=== PATIENT | male | born 1975 | race Caucasian/White ===

== ENCOUNTER 2017-11-28 17:31 | Emergency (ER) | payer SELFPAY ==
[2017-11-28] MEDS: ONDANSETRON ODT 4 MG TAB.RAPDIS. PO (19:14)
[2017-11-28] MEDS: LIDO:MAALOX:DONNATAL 1:1:1 15 ML SINGLE DOSE SWSW (19:14)
[2017-11-28] MEDS: FAMOTIDINE 20 MG TABLET. PO (19:14)
[2017-11-28 19:58] LABS: ADD MAN DIFF? NO
[2017-11-28 20:01] LABS: BASO # 0.1 x10^3/uL (0.0-0.2); BASO % 1 % (0-3); EOS # 0.3 x10^3/uL (0.0-0.7); EOS % 3 % (0-3); HEMATOCRIT 47.4 % (39.0-53.0); HEMOGLOBIN 16.3 g/dL (13.0-17.5); LYMPH # 3.7 x10^3/uL (1.0-4.8); LYMPH % 33 % (24-48); MEAN CORPUSCULAR HEMOGLOBIN 31 pg (25-35); MEAN CORPUSCULAR HGB CONC 35 g/dL (31-37); MEAN CORPUSCULAR VOLUME 90 fL (79-100); MONO # 0.9 x10^3/uL (0.0-1.1); MONO % 8 % (0-9); NEUT # 6.4 x10^3uL (1.8-7.7); NEUT % 56 % (31-73); PLATELET COUNT 280 x10^3/uL (140-400); RED BLOOD COUNT 5.27 x10^6/uL (4.30-5.70); RED CELL DISTRIBUTION WIDTH 13.6 % (11.5-14.5); WHITE BLOOD COUNT 11.4 x10^3/uL (4.0-11.0)
[2017-11-28 20:22] LABS: ANION GAP 9 (6-14); BLOOD UREA NITROGEN 11 mg/dL (8-26); BUN/CREATININE RATIO 12 (6-20); CALCIUM 9.1 mg/dL (8.5-10.1); CARBON DIOXIDE 29 mmol/L (21-32); CHLORIDE 102 mmol/L (98-107); CREATININE 0.9 mg/dL (0.7-1.3); GFR 92.5; GLUCOSE 103 mg/dL (70-99); POTASSIUM 4.5 mmol/L (3.5-5.1); SODIUM 140 mmol/L (136-145)
[2017-11-28 20:27] LABS: ALBUMIN 3.6 g/dL (3.4-5.0); ALK PHOS 110 U/L (46-116); ALT (SGPT) 35 U/L (16-63); AST (SGOT) 26 U/L (15-37); LIPASE 128 U/L (73-393); TOTAL BILIRUBIN 0.3 mg/dL (0.2-1.0); TOTAL PROTEIN 7.2 g/dL (6.4-8.2)
[2017-11-28 20:28] LABS: TROPONINI < 0.017 ng/mL (0.000-0.055)
[2017-11-28] MEDS: NITROGLYCERIN SUBLINGUAL 0.4 MG BOTTLE OF 25. SL (21:40)
== END 2017-11-28 22:17 | disposition home or self-care (01) ==
LOC: ER 17:31
DX: R10.13 Epigastric pain (principal); F17.200 Nicotine dependence, unspecified, uncomplicated; Z90.49 Acquired absence of other specified parts of digestive tract
CPT/HCPCS: 36415; 71045; 80053; 83690; 84484; 85025; 93005; 99285-25; Q0162

== ENCOUNTER 2018-05-08 11:44 | Emergency (ER) | payer SELFPAY ==
[~2018-05-08] VITALS: Ht 167.6 cm; Wt 63.5 kg
[~2018-05-08 11:44] MED LIST: METO10TA81 PO; OMEP20TA63 PO; RANI150T21 PO
[2018-05-08 13:39] LABS: BASO # 0.1 x10^3/uL (0.0-0.2); BASO % 1 % (0-3); EOS # 0.3 x10^3/uL (0.0-0.7); EOS % 2 % (0-3); HEMATOCRIT 45.5 % (39.0-53.0); LYMPH # 4.2 x10^3/uL (1.0-4.8); LYMPH % 37 % (24-48); MEAN CORPUSCULAR HEMOGLOBIN 32 pg (25-35); MEAN CORPUSCULAR HGB CONC 35 g/dL (31-37); MEAN CORPUSCULAR VOLUME 90 fL (79-100); MONO % 9 % (0-9); NEUT # 5.9 x10^3uL (1.8-7.7); NEUT % 51 % (31-73); PLATELET COUNT 270 x10^3/uL (140-400); RED BLOOD COUNT 5.05 x10^6/uL (4.30-5.70); RED CELL DISTRIBUTION WIDTH 13.2 % (11.5-14.5); WHITE BLOOD COUNT 11.4 x10^3/uL (4.0-11.0)
[2018-05-08] MEDS ORDERED: DEXAMETHASONE SOD PHOS 20 MG/5 ML VIAL. IV ONE (13:45)
[2018-05-08] MEDS ORDERED: IV NORMAL SALINE 1000ML BAG 1,000 ML IV ONE (13:45)
[2018-05-08 13:49] LABS: CALCIUM 9.3 mg/dL (8.5-10.1); CREATININE 1.1 mg/dL (0.7-1.3); GFR 73.4; POTASSIUM 3.2 mmol/L (3.5-5.1)
[2018-05-08 13:56] LABS: ALBUMIN 3.7 g/dL (3.4-5.0); MAGNESIUM 2.3 mg/dL (1.8-2.4); TOTAL BILIRUBIN 0.3 mg/dL (0.2-1.0); TOTAL PROTEIN 7.3 g/dL (6.4-8.2)
[2018-05-08 14:03] LABS: BILIRUBIN,URINE NEGATIVE (NEG); CLARITY,URINE CLEAR; COLOR,URINE YELLOW; NITRITE,URINE NEGATIVE (NEG); PH,URINE 5.5; PROTEIN,URINE NEGATIVE (NEG-TRACE); UROBILINOGEN,URINE 0.2 mg/dL (0.2 mg/dL)
[2018-05-08 14:14] LABS: BACTERIA,URINE 0 /HPF (0-FEW); RBC,URINE 0 /HPF (0-2); SQUAMOUS EPITHELIAL CELL,UR OCC /LPF; WBC,URINE 0 /HPF (0-4)
--- NOTE | 2018-05-08 14:17 | RAD ---
EXAM: Head CT without contrast. HISTORY: Headache and dizziness. TECHNIQUE: Computed tomographic images of the head were obtained without contrast. *One or more of the following individualized dose reduction techniques were utilized for this examination: 1. Automated exposure control. 2. Adjustment of the mA and/or kV according to patient size. 3. Use of iterative reconstruction technique. COMPARISON: None. FINDINGS: There is no acute or subacute extra-axial or intraparenchymal hemorrhage. There is no mass effect or midline shift. There is no hydrocephalus. The tatum-white matter differentiation pattern is intact. No orbital mass is seen. The visualized paranasal sinuses are clear. There is a small amount of fluid within the right mastoid air cells. IMPRESSION: No acute intracranial findings. Electronically signed by: Stephanie Mckinley MD (05/08/2018 2:14 PM) [facility]
--- NOTE | 2018-05-08 14:21 | PHYS DOC ---
Past Medical History Past Medical History: Other Additional Past Medical Histor: [place], HYPOGLYCEMIA Past Surgical History: Appendectomy, Tonsillectomy Alcohol Use: Occasionally Drug Use: None Adult General Chief Complaint Chief Complaint: DIZZY/LIGHT HEADED HPI HPI 42-year-old male presents to ER for complaints of one year history of intermittent headache, dizziness, and tendinitis. Patient reports he also has chronic diarrhea which is intermittent denying any episodes today. Patient's Aziza is at bedside and provides majority of history for the patient. She reports patient in the past month has had more intense symptoms. Patient reports he reports last night at [employer] and had intermittent dizziness denying any falls or injury. Patient reports when he got off work this morning when discussing symptoms with his they decided to come to the ER for evaluation. Patient has history of bilateral ruptured eardrums and is supposed to wear hearing aids however he doesn't. Patient is hard of hearing due to previous eardrum injuries. Education had ear tubes bilaterally as a child and has had chronic issues with his ear. Patient reports today having diffuse headache after getting off work denying any visual disturbances. Patient denies any confusion and at bedside denies patient having change in mental status or episodes of confusion. Patient reports he did take dose of ibuprofen at 6 AM this morning with slight improvement in pain however still rates pain at 8 out of 10. Patient denies any vomiting or diarrhea episodes today. Patient denies any chest pain or shortness of air. Patient reports he has had regular appetite and denies any urinary symptoms. He denies any neck pain or swollen lymph nodes. Review of Systems Review of Systems Constitutional: Denies fever or chills. Denies lethargy Eyes: Denies change in visual acuity, redness, or eye pain. Denies photosensitivity. HENT: Denies nasal congestion or sore throat. Reports multiple cavities with occasional abscess mid upper gum. Respiratory: Denies cough or shortness of breath [] Cardiovascular: Denies CP/palpitations GI: Denies abdominal pain or bloody stools. Reports intermittent N/V/D- no V/D today : Denies dysuria or hematuria. Denies change in urinary sxs Musculoskeletal: Denies back/neck pain. Reports generalized bodyaches Integument: Denies rash or skin lesions [] Neurologic: Denies focal weakness or sensory changes. Reports dizziness. Reports diffuse RIOS. All other systems were reviewed and found to be within normal limits, except as documented in this note. Current Medications Current Medications Current Medications Medications (Trade) Dose Ordered Sig/Dulce Maria Start Time Stop Time Status Last Admin Dose Admin Dexamethasone Sodium Phosphate (Decadron) 10 mg 1X ONCE 05/08/18 13:45 05/08/18 13:46 DC 05/08/18 14:09 10 MG Ketorolac Tromethamine (Toradol 15mg Vial) 15 mg 1X ONCE 05/08/18 15:15 05/08/18 15:16 DC 05/08/18 15:17 15 MG Sodium Chloride 1,000 ml @ 1,000 mls/hr 1X ONCE 05/08/18 13:45 05/08/18 14:44 DC 05/08/18 14:09 1,000 MLS/HR Allergies Allergies Allergies Coded Allergies Type Severity Reaction Last Updated Verified No Known Drug Allergies 11/28/17 No Physical Exam Physical Exam Constitutional: Well developed, well nourished, no acute distress, non-toxic appearance. Speaking in full sentences with no slurring HENT: Normocephalic, atraumatic, bilateral ears normal- no erythema/purulent drainage, oropharynx moist, no oral exudates, nose normal.Multiple cavities- with no visible or palp. abscess on mid upper gum. Bilat. mandible with no swelling/palp. popping with opening of jaw Eyes: 3mm PERRLA, EOMI- no pain with eye movement, no nystagmus, conjunctiva normal, no discharge. [] Neck: Normal range of motion, no tenderness, supple, no stridor. No gross adenopathy Cardiovascular:Heart rate regular rhythm, no murmur [] Lungs & Thorax: Bilateral breath sounds clear to auscultation. Resp. equal/ nonlabored Abdomen: Bowel sounds normal, soft, no tenderness, no masses, no pulsatile masses. [] Skin: Warm, dry, no erythema, no rash. [] Back: No tenderness, no CVA tenderness. [] Extremities: No tenderness, no cyanosis, no clubbing, ROM intact, no edema. [] Neurologic: Alert and oriented X 3, normal motor function, normal sensory function, no focal deficits noted. Steady gait Psychologic: Affect normal, judgement normal, mood normal. [] Current Patient Data Vital Signs Vital Signs Date Time Temp Pulse Resp B/P (MAP) Pulse Ox O2 Delivery O2 Flow Rate FiO2 05/08/18 15:30 50 91 05/08/18 12:25 98.6 16 114/64 (81) Room Air 98.6 Lab Values Laboratory Tests Test 05/08/18 12:15 05/08/18 13:54 White Blood Count 11.4 x10^3/uL (4.0-11.0) H Red Blood Count 5.05 x10^6/uL (4.30-5.70) Hemoglobin 16.0 g/dL (13.0-17.5) Hematocrit 45.5 % (39.0-53.0) Mean Corpuscular Volume 90 fL (79-100) Mean Corpuscular Hemoglobin 32 pg (25-35) Mean Corpuscular Hemoglobin Concent 35 g/dL (31-37) Red Cell Distribution Width 13.2 % (11.5-14.5) Platelet Count 270 x10^3/uL (140-400) Neutrophils (%) (Auto) 51 % (31-73) Lymphocytes (%) (Auto) 37 % (24-48) Monocytes (%) (Auto) 9 % (0-9) Eosinophils (%) (Auto) 2 % (0-3) Basophils (%) (Auto) 1 % (0-3) Neutrophils # (Auto) 5.9 x10^3uL (1.8-7.7) Lymphocytes # (Auto) 4.2 x10^3/uL (1.0-4.8) Monocytes # (Auto) 1.0 x10^3/uL (0.0-1.1) Eosinophils # (Auto) 0.3 x10^3/uL (0.0-0.7) Basophils # (Auto) 0.1 x10^3/uL (0.0-0.2) Sodium Level 133 mmol/L (136-145) L Potassium Level 3.2 mmol/L (3.5-5.1) L Chloride Level 99 mmol/L (98-107) Carbon Dioxide Level 28 mmol/L (21-32) Anion Gap 6 (6-14) Blood Urea Nitrogen 14 mg/dL (8-26) Creatinine 1.1 mg/dL (0.7-1.3) Estimated GFR (Cockcroft-Gault) 73.4 BUN/Creatinine Ratio 13 (6-20) Glucose Level 76 mg/dL (70-99) Calcium Level 9.3 mg/dL (8.5-10.1) Magnesium Level 2.3 mg/dL (1.8-2.4) Total Bilirubin 0.3 mg/dL (0.2-1.0) Aspartate Amino Transferase (AST) 21 U/L (15-37) Alanine Aminotransferase (ALT) 29 U/L (16-63) Alkaline Phosphatase 94 U/L (46-116) Creatine Kinase 118 U/L (39-308) Creatine Kinase MB (Mass) 1.5 ng/mL (0.0-3.6) Creatine Kinase MB Relative Index 1.3 % (0-4) Troponin I Quantitative < 0.017 ng/mL (0.000-0.055) Total Protein 7.3 g/dL (6.4-8.2) Albumin 3.7 g/dL (3.4-5.0) Albumin/Globulin Ratio 1.0 (1.0-1.7) Urine Collection Type Unknown Urine Color Yellow Urine Clarity Clear Urine pH 5.5 Urine Specific [place] 1.010 Urine Protein Negative mg/dL (NEG-TRACE) Urine Glucose (UA) Negative mg/dL (NEG) Urine Ketones (Stick) Negative mg/dL (NEG) Urine Blood Negative (NEG) Urine Nitrite Negative (NEG) Urine Bilirubin Negative (NEG) Urine Urobilinogen Dipstick 0.2 mg/dL (0.2 mg/dL) Urine Leukocyte Esterase Negative (NEG) Urine RBC 0 /HPF (0-2) Urine WBC 0 /HPF (0-4) Urine Squamous Epithelial Cells Occ /LPF Urine Bacteria 0 /HPF (0-FEW) Laboratory Tests 05/08/18 12:15 Laboratory Tests 05/08/18 12:15 EKG EKG EKG obtained 05/08/18 at [address] Michael Sinus rhythm No STEMI Vent rate 74 Radiology/Procedures Radiology/Procedures HISTORY: Headache and dizziness. TECHNIQUE: Computed tomographic images of the head were obtained without contrast. *One or more of the following individualized dose reduction techniques were utilized for this examination: 1. Automated exposure control. 2. Adjustment of the mA and/or kV according to patient size. 3. Use of iterative reconstruction technique. COMPARISON: None. FINDINGS: There is no acute or subacute extra-axial or intraparenchymal hemorrhage. There is no mass effect or midline shift. There is no hydrocephalus. The tatum-white matter differentiation pattern is intact. No orbital mass is seen. The visualized paranasal sinuses are clear. There is a small amount of fluid within the right mastoid air cells. IMPRESSION: No acute intracranial findings. Electronically signed by: Stephanie Ma MD (05/08/2018 2:14 PM) [facility] DICTATED and SIGNED BY: STEPHANIE MA MD DATE: 05/08/18 1413 Course & Med Decision Making Course & Med Decision Making Pertinent Labs and Imaging studies reviewed. (See chart for details) 1455: Indepth conversation had with pt and his regarding ongoing sxs. Discussed test results with head CT with no acute findings; EKG with no acute ST elevation/STEMI and troponin < 0.017; UA unremarkable- K+ was 3.2 pt reported he hasn't eaten since getting off work- discussed eating well balanced diet w/adequate fld intake. Pt remains A&Ox3 with reports dizziness has subsided since receiving IV flds. Pt denies any change in tinnitis and reports still has mild diffuse headache. He denies any N/V/D. Will provide dose of toradol for RIOS. Discussed need for f/u with ENT for further eval/care and pt's reports pt was suppose to go in and see this type of doctor but has not gone as of yet. Pt denies today's sxs are different then those that have been present for past 1 mo. Pt has no neuro focal deficits. Discussed plans for home discharge discussed with education on s&s to return to ER for. At time of discharge pt is stable and in no visible distress/nontoxic in appearance. Will provide info with discharge for clinics/physicians for f/u purposes. Smoking cessation discussed. Staff Physician Addendum: I was working in the ER during the course of this patient's visit. I was available for consultation as needed, but I was not directly involved in the care of this patient. solitario Lamb Disclaimer Adonis Disclaimer This electronic medical record was generated, in whole or in part, using a voice recognition dictation system. Departure Departure Impression: Primary Impression: Tinnitus Additional Impressions: Dizziness Diarrhea Headache Disposition: HOME, SELF-CARE Condition: STABLE Referrals: NO PCP (PCP) Patient Instructions: Cluster Headache, Fyek-we-Furd, Diarrhea, Oaan-to-Gxpb, Dizziness, Sfsg-wi-[id number], Tinnitus Additional Instructions: Drink plenty of water. Tylenol and/or Ibuprofen as needed for pain control as directed on container. Need to follow-up with ENT doctor for further evaluation/care. Problem Qualifiers SANDY FIELDS APRN May 08, 2018 14:20 JULIAN MICHAEL MD May 08, 2018 16:32
[2018-05-08] MEDS ORDERED: KETOROLAC 15 MG/ML VIAL. IV ONE (15:15)
[2018-05-08 15:30] VITALS: BP 113/62
--- NOTE | 2018-05-08 18:51 | EKG ---
[facility] [address] [place] [address] Test Date: 2018-05-08 Test Time: 12:13:10 Pat Name: WILLIE COY Department: Room: Gender: Director Business: : 1975 Requested By: SANDY FIELDS Order Number: [id number] Reading MD: Lv Boggs MD Measurements Intervals [place] Rate: 74 P: 46 TN: 150 QRS: 58 QRSD: 70 T: 52 QT: 368 QTc: 413 Interpretive Statements SINUS RHYTHM Electronically Signed On 05-09-2018 10:49:51 CDT by Lv Boggs MD
== END 2018-05-08 15:46 | disposition home or self-care (01) ==
LOC: ER 11:44
DX: R42 Dizziness and giddiness (principal); R51 Headache; K52.9 Noninfective gastroenteritis and colitis, unspecified; H93.13 Tinnitus, bilateral; Z90.89 Acquired absence of other organs
CPT/HCPCS: 36415; 70450; 80053; 81001; 82553; 83735; 84484; 85025; 93005; 96361; 96374; 96375; 99285; J1100; J1885; J7030

== ENCOUNTER 2018-09-19 18:25 | Emergency (ER) | payer SELFPAY ==
[~2018-09-19] VITALS: Ht 162.6 cm; Wt 63.5 kg
[2018-09-19 18:30] VITALS: BP 126/81
[2018-09-19] MEDS ORDERED: ALPRAZolam 0.5 MG TABLET PO ONE (18:45)
[2018-09-19] MEDS ORDERED: ALPR0.5T PO (18:57)
[2018-09-19] MEDS ORDERED: OLAN5TAB3 PO (18:57)
--- NOTE | 2018-09-19 19:08 | PHYS DOC ---
Past Medical History Past Medical History: Hypertension, Schizophrenia, Other Additional Past Medical Histor: [place], HYPOGLYCEMIA, multiple personality disorder Past Surgical History: Appendectomy, Tonsillectomy Alcohol Use: Occasionally Drug Use: None Adult General Chief Complaint Chief Complaint: PSYCH EVALUATION [facility] Patient is a 43 year old male who presents with anxiety and schizophrenia symptoms. The patient has had these diagnoses for many years. He does complain that he is hearing voices. The voices are baseline for him. He is not being instructed to harm himself or anyone else. He does not feel suicidal. He cannot say exactly what the voices are telling him to do. The patient was previously treated with Latuda, Zyprexa, and Xanax. Patient is accompanied by a family member who states that she has already scheduled an appointment for him at the [facility] 4 days from now. She also is aware of the walk-in crisis center which she can take him to if he decompensates in the meantime. The patient has no additional complaints. He denies drug use. He is not suicidal or homicidal. He is primarily requesting refill of his psychiatric medications. He has been off of these for several years. Review of Systems Review of Systems Constitutional: Denies fever or chills Eyes: Denies change in visual acuity HENT: Denies nasal congestion, + chronic hearing loss for which he is followed at [facility] Respiratory: Denies cough or shortness of breath Cardiovascular: No additional information not addressed in HPI GI: Denies abdominal pain : Denies Musculoskeletal: Denies Integument: Denies rash Neurologic: Denies headache Endocrine: Denies All other systems were reviewed and found to be within normal limits, except as documented in this note. Current Medications Current Medications Current Medications Medications (Trade) Dose Ordered Sig/Dulce Maria Start Time Stop Time Status Last Admin Dose Admin Alprazolam (Xanax) 0.5 mg 1X ONCE 09/19/18 18:45 09/19/18 18:46 DC 09/19/18 18:52 0.5 MG Olanzapine (ZyPREXA ZYDIS) 5 mg 1X ONCE 09/19/18 18:45 09/19/18 18:46 DC 09/19/18 18:52 5 MG Allergies Allergies Allergies Coded Allergies Type Severity Reaction Last Updated Verified No Known Drug Allergies 11/28/17 No Physical Exam Physical Exam Constitutional: Well developed, well nourished, no acute distress, non-toxic appearance HENT: Normocephalic, atraumatic, bilateral external ears normal Eyes: PERRLA, EOMI Neck: Normal range of motion Cardiovascular:Heart rate regular rhythm, no murmur Lungs & Thorax: Bilateral breath sounds clear to auscultation Skin: Warm, dry, no erythema, no rash Back: No tenderness Neurologic: Alert and oriented X 3 Psychologic: Affect normal, calm and cooperative, normal eye contact, normal sabianism of speech, mood is euthymic and affect is congruent. Active auditory hallucinations but no acute psychiatric symptoms. Current Patient Data Vital Signs Vital Signs Date Time Temp Pulse Resp B/P (MAP) Pulse Ox O2 Delivery O2 Flow Rate FiO2 09/19/18 18:30 98.6 113 18 126/81 (96) 96 Room Air 98.6 EKG EKG [] Radiology/Procedures Radiology/Procedures [] Course & Med Decision Making Course & Med Decision Making Pertinent Labs and Imaging studies reviewed. (See chart for details) Patient is evaluated in the ER primarily for medication refill. I told him I was not comfortable filling his Latuda but that I was willing to give him some medication for anxiety and for his hallucinatory symptoms. Patient is provided a small number of Xanax for anxiety and he is also given Zyprexa 5 mg to take nightly which he has previously successfully been treated with. The patient has close follow-up already scheduled. If his symptoms worsen or he decompensates, he will come back to the emergency room or go to the walk-in crisis Center if it is during the daytime. Patient is satisfied with this plan of care. He is accompanied by a family member who seems to have a good understanding of his diagnosis. No suicidal or homicidal thoughts this evening. No indication for an acute psychiatric assessment screening as the recommendation would be to simply keep his already scheduled appointment. He does not meet inpatient criteria based on my interview and examination. Patient is discharged home with prescriptions mentioned above. First doses are given in the ER. Dragon Disclaimer Dragon Disclaimer This electronic medical record was generated, in whole or in part, using a voice recognition dictation system. Departure Departure Impression: Primary Impression: Anxiety Additional Impression: Schizophrenia Disposition: 01 HOME, SELF-CARE Condition: GOOD Patient Instructions: Anxiety and Panic Attacks, Oufh-sx-Pwis, Schizophrenia Additional Instructions: [facility] You can also walk into the crisis center anytime if you need evaluation prior to Wednesday. Return to the ER if you have thoughts of harming yourself or others or if your symptoms worsen. Scripts Alprazolam (XANAX) 0.5 Mg Tablet 1 TAB PO TID for anxiety, #21 TAB Prov: DEREK WAGNER DO 09/19/18 Olanzapine (ZYPREXA) 5 Mg Tablet 1 TAB PO QHS, #14 TAB Prov: DEREK WAGNER DO 09/19/18 Problem Qualifiers DEREK WAGNER DO Sep 19, 2018 19:08
== END 2018-09-19 19:13 | disposition home or self-care (01) ==
LOC: ER 18:25
DX: F41.9 Anxiety disorder, unspecified (principal); F20.9 Schizophrenia, unspecified; I10 Essential (primary) hypertension; Z90.89 Acquired absence of other organs
CPT/HCPCS: 99284

== ENCOUNTER 2018-10-04 18:52 | Emergency (ER) | payer SELFPAY ==
[~2018-10-04] VITALS: Ht 162.6 cm; Wt 62.1 kg
[~2018-10-04 18:52] MED LIST changes: +ALPR0.5T PO; +OLAN5TAB3 PO
[2018-10-04] MEDS ORDERED: SULF1TAB24 PO (20:14)
[2018-10-04] MEDS ORDERED: MUPI15CR TP (20:14)
[2018-10-04 20:25] VITALS: BP 106/60
--- NOTE | 2018-10-04 20:40 | PHYS DOC ---
Past Medical History Past Medical History: Anxiety, Depression Additional Past Medical Histor: [place], HYPOGLYCEMIA, multiple personality disorder Past Surgical History: Appendectomy Additional Information: 1-2 PPD Alcohol Use: Rarely Drug Use: None Adult General Chief Complaint Chief Complaint: DIZZY/LIGHT HEADED HPI HPI Patient is a 43 year old sense multiple medical complaints. Patient reported to her dizziness earlier to triage and ED RN, however, he denies current symptoms on my evaluation. Rather patient is most concerned about taking sores and rash to face, and extremities which is been ongoing for several days. Patient is unsure causes rash and is seeking treatment for this condition today. Denies history of MRSA. No fever chills, nausea or sweats. Denies use of illicit drugs. Patient is not a diabetic.[] Review of Systems Review of Systems Review symptoms as per history of present illness. All other review symptoms are negative. All other systems were reviewed and found to be within normal limits, except as documented in this note. Allergies Allergies Allergies Coded Allergies Type Severity Reaction Last Updated Verified No Known Drug Allergies 11/28/17 No Physical Exam Physical Exam Constitutional: Well developed, well nourished, no acute distress, non-toxic appearance. Hard of hearing. [] HENT: Normocephalic, atraumatic, bilateral external ears normal, oropharynx moist, nose normal. [] Eyes: PERRLA, EOMI, conjunctiva normal. [] Neck: Normal range of motion, no tenderness. [] Cardiovascular:Heart rate regular rhythm, no murmur. [] Lungs & Thorax: Bilateral breath sounds clear to auscultation [] Neurologic: Alert and oriented X 3, normal motor function, normal sensory function, no focal deficits noted. [] Skin: Picking sores/lesions over cheek, neck, bilateral upper extremities without cellulitis or abscess. [] Current Patient Data Vital Signs Vital Signs Date Time Temp Pulse Resp B/P (MAP) Pulse Ox O2 Delivery O2 Flow Rate FiO2 10/04/18 19:37 97.5 90 18 139/84 (102) 98 Room Air 97.5 EKG EKG [] Radiology/Procedures Radiology/Procedures [] Course & Med Decision Making Course & Med Decision Making Pertinent Labs and Imaging studies reviewed. (See chart for details) [Patient with picking lesions, sores consistent with MRSA infection. Afebrile, normal vital signs. Walks with steady gait. Denies dizziness on my evaluation declines additional workup. Will treat empirically with PCP follow-up. Return precautions reviewed.] Adonis Disclaimer Adonis Disclaimer This electronic medical record was generated, in whole or in part, using a voice recognition dictation system. Departure Departure Impression: Primary Impression: Skin sore Disposition: HOME, SELF-CARE Condition: GOOD Patient Instructions: Staphylococcal Infections Additional Instructions: Do not pick skin and avoid scracthing. Take oral antibitoics as direcetd and apply topical antibiotics as directed. Follow up with your PCP in 3-5 days for re-evaluation. Return to the ED if worse. Scripts Mupirocin Calcium (BACTROBAN CREAM) 15 Gm Cream..g. 1 ARELIS TP TID for 7 Days, #21 EACH Prov: MARCO ANTONIO CHIRINOS DO 10/04/18 Sulfamethoxazole/Trimethoprim (BACTRIM DS TABLET) 1 Each Tablet 1 TAB PO BID, #20 TAB Prov: MARCO ANTONIO CHIRINOS DO 10/04/18 MARCO ANTONIO CHIRINOS DO Oct 04, 2018 20:40
== END 2018-10-04 20:30 | disposition home or self-care (01) ==
LOC: ER 18:52
DX: L98.8 Other specified disorders of the skin and subcutaneous tissue (principal); R42 Dizziness and giddiness; R21 Rash and other nonspecific skin eruption; F41.9 Anxiety disorder, unspecified; F32.9 Major depressive disorder, single episode, unspecified; F17.200 Nicotine dependence, unspecified, uncomplicated
CPT/HCPCS: 99283

== ENCOUNTER 2018-12-23 19:12 | Emergency (ER) | payer SELFPAY ==
[~2018-12-23] VITALS: Ht 162.6 cm; Wt 61.2 kg
[~2018-12-23 19:12] MED LIST changes: +MUPI15CR TP; +RANI-376 PO; -RANI150T21 PO; +SULF1TAB24 PO
[2018-12-23] MEDS ORDERED: KETOROLAC 30 MG/ML VIAL. IV ONE (19:30)
[2018-12-23] MEDS ORDERED: LIDO:MAALOX 1:1 20 ML SINGLE DOSE. PO ONE (19:30)
[2018-12-23] MEDS ORDERED: IV NORMAL SALINE 1000ML BAG 1,000 ML IV ONE (19:30)
[2018-12-23] MEDS ORDERED: FAMOTIDINE 20 MG/2 ML VIAL IVP ONE (19:30)
[2018-12-23 19:48] LABS: BASO # 0.1 x10^3/uL (0.0-0.2); BASO % 1 % (0-3); EOS # 0.1 x10^3/uL (0.0-0.7); EOS % 1 % (0-3); HEMATOCRIT 42.8 % (39.0-53.0); HEMOGLOBIN 14.6 g/dL (13.0-17.5); LYMPH # 2.5 x10^3/uL (1.0-4.8); LYMPH % 28 % (24-48); MEAN CORPUSCULAR HEMOGLOBIN 31 pg (25-35); MEAN CORPUSCULAR HGB CONC 34 g/dL (31-37); MEAN CORPUSCULAR VOLUME 92 fL (79-100); MONO # 0.7 x10^3/uL (0.0-1.1); MONO % 7 % (0-9); NEUT # 5.8 x10^3uL (1.8-7.7); NEUT % 63 % (31-73); PLATELET COUNT 281 x10^3/uL (140-400); RED BLOOD COUNT 4.67 x10^6/uL (4.30-5.70); RED CELL DISTRIBUTION WIDTH 13.4 % (11.5-14.5); WHITE BLOOD COUNT 9.1 x10^3/uL (4.0-11.0)
[2018-12-23 20:05] LABS: PROTHROMBIN TIME PATIENT 12.6 SEC (11.7-14.0)
[2018-12-23 20:14] LABS: CALCIUM 8.6 mg/dL (8.5-10.1); CREATININE 0.9 mg/dL (0.7-1.3); GFR 92.1; POTASSIUM 3.8 mmol/L (3.5-5.1)
[2018-12-23 20:16] LABS: ALBUMIN 3.4 g/dL (3.4-5.0); ALBUMIN/GLOBULIN RATIO 0.9 (1.0-1.7); MAGNESIUM 2.1 mg/dL (1.8-2.4); TOTAL BILIRUBIN 0.2 mg/dL (0.2-1.0)
[2018-12-23 20:24] LABS: CREATINE KINASE 74 U/L (39-308)
[2018-12-23] MEDS ORDERED: FAMO-63 PO (22:47)
--- NOTE | 2018-12-23 22:48 | PHYS DOC ---
Past Medical History Past Medical History: Hypertension Additional Past Medical Histor: [place], hypoglycemic Past Surgical History: Appendectomy Additional Information: 0.5 PPD Alcohol Use: Rarely Drug Use: None Adult General Chief Complaint Chief Complaint: ABDOMINAL PAIN HPI HPI 43-year-old male presents with report of 2 day history of epigastric discomfort with associated nausea and vomiting. Reports some radiation to chest. Patient also reporting a headache. Denies neck pain or fever. Denies known trauma. Denies known sick contacts. She also reports history of anxiety. Denies any suicidal or homicidal ideation. Review of Systems Review of Systems Constitutional: Denies fever or chills [] Eyes: Denies change in visual acuity, redness, or eye pain [] Respiratory: Denies cough or shortness of breath [] Cardiovascular: Denies palpitations; reports radiation of epigastric pain to chest GI: Reports abdominal pain, nausea, and vomiting; denies diarrhea [] : Denies dysuria or hematuria [] Musculoskeletal: Denies back pain or joint pain [] Integument: Denies rash or skin lesions [] Neurologic: Reports headache; denies focal weakness or sensory changes [] Psychiatric: Reports anxiety; denies suicidal or homicidal ideation Complete systems were reviewed and found to be within normal limits, except as documented in this note. Current Medications Current Medications Current Medications Medications (Trade) Dose Ordered Sig/[facility] Start Time Stop Time Status Last Admin Dose Admin Famotidine (Pepcid Vial) 20 mg 1X ONCE 12/23/18 19:30 12/23/18 19:41 DC 12/23/18 19:55 20 MG Ketorolac Tromethamine (Toradol 30mg Vial) 15 mg 1X ONCE 12/23/18 19:30 12/23/18 19:41 DC 12/23/18 19:56 15 MG Lorazepam (Ativan) 0.5 mg 1X ONCE 12/23/18 23:30 12/23/18 23:31 DC 12/23/18 23:27 0.5 MG Multi-Ingredient Mouthwash/Gargle (Gi Cocktail) 20 ml 1X ONCE 12/23/18 19:30 12/23/18 19:41 DC 12/23/18 19:55 20 ML Sodium Chloride 1,000 ml @ 1,000 mls/hr 1X ONCE 12/23/18 19:30 12/23/18 20:29 DC 12/23/18 19:57 1,000 MLS/HR Allergies Allergies Allergies Coded Allergies Type Severity Reaction Last Updated Verified No Known Drug Allergies 11/28/17 No Physical Exam Physical Exam Constitutional: Well developed, well nourished, no acute distress, non-toxic appearance. [] HENT: Normocephalic, atraumatic, oropharynx moist Eyes: PERRL, EOMI, conjunctiva normal, no discharge. [] Neck: Normal range of motion, no tenderness, supple Cardiovascular: Heart rate regular rhythm, no murmur [] Lungs & Thorax: Bilateral breath sounds clear to auscultation [] Abdomen: Soft, no tenderness Skin: Warm, dry, no erythema, no rash. [] Extremities: No tenderness, ROM intact, no edema. [] Neurologic: Alert and oriented X 3, normal motor function, normal sensory function, no focal deficits noted. [] Psychologic: Affect anxious, judgement normal Current Patient Data Vital Signs Vital Signs Date Time Temp Pulse Resp B/P (MAP) Pulse Ox O2 Delivery O2 Flow Rate FiO2 12/23/18 23:21 60 116/79 (91) 96 Room Air 12/23/18 20:21 16 12/23/18 19:21 98.0 98.0 Lab Values Laboratory Tests Test 12/23/18 19:40 12/23/18 21:11 White Blood Count 9.1 x10^3/uL (4.0-11.0) Red Blood Count 4.67 x10^6/uL (4.30-5.70) Hemoglobin 14.6 g/dL (13.0-17.5) Hematocrit 42.8 % (39.0-53.0) Mean Corpuscular Volume 92 fL (79-100) Mean Corpuscular Hemoglobin 31 pg (25-35) Mean Corpuscular Hemoglobin Concent 34 g/dL (31-37) Red Cell Distribution Width 13.4 % (11.5-14.5) Platelet Count 281 x10^3/uL (140-400) Neutrophils (%) (Auto) 63 % (31-73) Lymphocytes (%) (Auto) 28 % (24-48) Monocytes (%) (Auto) 7 % (0-9) Eosinophils (%) (Auto) 1 % (0-3) Basophils (%) (Auto) 1 % (0-3) Neutrophils # (Auto) 5.8 x10^3uL (1.8-7.7) Lymphocytes # (Auto) 2.5 x10^3/uL (1.0-4.8) Monocytes # (Auto) 0.7 x10^3/uL (0.0-1.1) Eosinophils # (Auto) 0.1 x10^3/uL (0.0-0.7) Basophils # (Auto) 0.1 x10^3/uL (0.0-0.2) Prothrombin Time 12.6 SEC (11.7-14.0) Prothrombin Time INR 1.0 (0.8-1.1) PTT 31 SEC (24-38) Sodium Level 139 mmol/L (136-145) Potassium Level 3.8 mmol/L (3.5-5.1) Chloride Level 100 mmol/L (98-107) Carbon Dioxide Level 29 mmol/L (21-32) Anion Gap 10 (6-14) Blood Urea Nitrogen 9 mg/dL (8-26) Creatinine 0.9 mg/dL (0.7-1.3) Estimated GFR (Cockcroft-Gault) 92.1 BUN/Creatinine Ratio 10 (6-20) Glucose Level 73 mg/dL (70-99) Calcium Level 8.6 mg/dL (8.5-10.1) Magnesium Level 2.1 mg/dL (1.8-2.4) Total Bilirubin 0.2 mg/dL (0.2-1.0) Aspartate Amino Transferase (AST) 13 U/L (15-37) L Alanine Aminotransferase (ALT) 17 U/L (16-63) Alkaline Phosphatase 85 U/L (46-116) Creatine Kinase 74 U/L (39-308) Creatine Kinase MB (Mass) 1.0 ng/mL (0.0-3.6) Creatine Kinase MB Relative Index % (0-4) Troponin I Quantitative < 0.017 ng/mL (0.000-0.055) < 0.017 ng/mL (0.000-0.055) Total Protein 7.0 g/dL (6.4-8.2) Albumin 3.4 g/dL (3.4-5.0) Albumin/Globulin Ratio 0.9 (1.0-1.7) L Lipase 92 U/L (73-393) Laboratory Tests 12/23/18 19:40 Laboratory Tests 12/23/18 19:40 EKG EKG @1921 NSR at 69bpm, NO ST elevation Radiology/Procedures Radiology/Procedures CXR 2 view (preliminary interpretation by ED physician) no acute process. Course & Med Decision Making Course & Med Decision Making Pertinent Labs and Imaging studies reviewed. (See chart for details) Patient presents with epigastric pain radiating to his chest with associated nausea and vomiting. HEART score of 1. EKG stable. Chest x-ray without acute process labs obtained and posted chart. LFTs and lipase without acute process. Troponin x2 also within normal limits. Symptomatic treatment provided with interval improvement of symptoms. Patient stable for discharge with outpatient follow-up with PCP. Discussed findings and plan with patient, who acknowledges understanding and agreement. Dragon Disclaimer Dragon Disclaimer This electronic medical record was generated, in whole or in part, using a voice recognition dictation system. Departure Departure Impression: Primary Impression: Atypical chest pain Additional Impressions: Epigastric pain Anxiety Disposition: HOME, SELF-CARE Condition: STABLE Referrals: UNKNOWN PCP NAME (PCP) CHRIS BROWN MD Patient Instructions: Abdominal Pain (Nonspecific), Anxiety and Panic Attacks, [id number], Chest Pain (Nonspecific), [id number], Gastritis, Adult, Easy-to- Read Scripts Lorazepam (ATIVAN) 0.5 Mg Tablet 0.5 MG PO TID, #10 TAB Prov: ALFIE TOSCANO DO 12/23/18 Famotidine (PEPCID) 20 Mg Tablet 20 MG PO BID, #20 TAB Prov: ALFIE TOSCANO DO 12/23/18 Problem Qualifiers ALFIE TOSCANO DO Dec 23, 2018 22:47
[2018-12-23] MEDS ORDERED: LORA0.5T96 PO (22:49)
[2018-12-23 23:21] VITALS: BP 116/79
[2018-12-23] MEDS ORDERED: LORazepam 1 MG TABLET PO ONE (23:30)
--- NOTE | 2018-12-24 08:07 | RAD ---
PA and lateral chest. HISTORY: Epigastric pain, hypertension, hypoglycemia PA and lateral views were taken of the chest. Lungs are clear. Heart is normal in size without heart failure. There is no effusion. IMPRESSION: 1. No acute infiltrates or acute chest disease. Electronically signed by: Todd Santiago MD (12/24/2018 8:04 AM) [facility]
--- NOTE | 2018-12-24 14:46 | EKG ---
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
== END 2018-12-23 23:30 | disposition home or self-care (01) ==
LOC: ER 19:12
DX: R07.89 Other chest pain (principal); R10.13 Epigastric pain; R51 Headache; F41.9 Anxiety disorder, unspecified; I10 Essential (primary) hypertension; Z90.89 Acquired absence of other organs; F17.200 Nicotine dependence, unspecified, uncomplicated
CPT/HCPCS: 36415; 71046; 80053; 82553; 83690; 83735; 84484; 85025; 85610; 85730; 93005; 96374; 96375; 99285; J1885; J2060; J3490; J7030; 99284-25

== ENCOUNTER 2020-09-03 20:02 | Emergency (ER) | payer MEDICAID ==
[~2020-09-03] VITALS: Ht 162.6 cm; Wt 65.9 kg
[~2020-09-03 20:02] MED LIST changes: +FAMO-63 PO; +LORA0.5T96 PO
[2020-09-03 20:21] VITALS: BP 144/90
[2020-09-03] MEDS ORDERED: CHLO15MO2 SWSP (20:34)
[2020-09-03] MEDS ORDERED: PENI500T PO (20:34)
--- NOTE | 2020-09-03 20:35 | ED.ADGEN ---
Past Medical History Past Medical History: Hypertension Additional Past Medical Histor: [place], hypoglycemic Past Surgical History: Appendectomy Smoking Status: Current Every Day Smoker Alcohol Use: Rarely Drug Use: None General Adult EDM: Chief Complaint: DENTAL PROBLEM HPI: HPI: Patient is a 45 year old 45-year-old male who presents to the emergency department with reports of a parasite being in the lower right quadrant of his mouth where he lost a tooth a month ago. Patient states he saw something pop up out of his job when he opened his mouth and he can feel something moving in there. Patient's reports that the patient lost the tooth a month ago when he was eating ice cream cone. He denies any fever or pain. Patient's reports that the patient has an appointment with his dentist next week. Review of Systems: Review of Systems: Complete ROS is negative unless otherwise noted in HPI. Allergies: Allergies: Allergies Coded Allergies Type Severity Reaction Last Updated Verified No Known Drug Allergies 11/28/17 No Physical Exam: PE: See Above Constitutional: Well developed, well nourished, no acute distress, non-toxic appearance. [] HENT: Normocephalic, atraumatic, bilateral external ears normal, nose normal; diffuse dental decay with missing tooth in right lower quadrant, mild gingival edema and erythema throughout, no visible or palpable dental abscess [] Eyes: PERRLA, EOMI, conjunctiva normal, no discharge. [] Neck: Normal range of motion, supple, nontender, no stridor. [] Cardiovascular:Heart rate regular rhythm Lungs & Thorax: Respirations even and unlabored, no retractions, no respiratory distress Skin: Warm, dry, no erythema, no rash. [] Extremities: No cyanosis, ROM intact, no edema. [] Neurologic: Alert and oriented X 3, no focal deficits noted. [] Psychologic: Affect normal, judgement normal, mood normal. [] EKG: EKG: [] Heart Score: Risk Factors: Risk Factors: DM, Current or recent (<one month) smoker, HTN, HLP, family history of CAD, obesity. Risk Scores: Score 0 - 3: 2.5% MACE over next 6 weeks - Discharge Home Score 4 - 6: 20.3% MACE over next 6 weeks - Admit for Clinical Observation Score 7 - 10: 72.7% MACE over next 6 weeks - Early Invasive Strategies Radiology/Procedures: Radiology/Procedures: [] Course & Med Decision Making: Course & Med Decision Making Pertinent Labs and Imaging studies reviewed. (See chart for details) [] Adonis Disclaimer: Adonis Disclaimer: This electronic medical record was generated, in whole or in part, using a voice recognition dictation system. Departure Departure Impression: Primary Impression: Dental infection Additional Impressions: Broken tooth without complication Tooth missing Disposition: 01 DC HOME SELF CARE/HOMELESS Condition: STABLE Referrals: UNKNOWN PCP NAME (PCP) Patient Instructions: Dental Caries Additional Instructions: Fill prescription(s) and use as directed. Follow up with dentist using the referral list provided. Return to the ER if symptoms worsen. Scripts Chlorhexidine Gluconate (PERIDEX) 15 Ml Mouthwash 15 ML SWSP BID for 7 Days, #473 ML 0 Refills [place] teeth before using to prevent staining. Swish for approximately 30 seconds before spitting. Prov: JOSUE ALCAZAR APRN 09/03/20 Penicillin V Potassium (PENICILLIN V POTASSIUM) 500 Mg Tablet 1 TAB PO QID for 10 Days, #40 TAB 0 Refills Prov: JOSUE ALCAZAR APRN 09/03/20 Problem Qualifiers Additional Impressions: Broken tooth without complication Encounter type: initial encounter Fracture type: open Qualified Codes: S02.5XXB - Fracture of tooth (traumatic), initial encounter for open fracture JOSUE ALCAZAR APRN Sep 03, 2020 20:35
== END 2020-09-03 20:40 | disposition home or self-care (01) ==
LOC: ER 20:02
DX: S02.5XXA Fracture of tooth (traumatic), initial encounter for closed fracture (principal); K04.7 Periapical abscess without sinus; I10 Essential (primary) hypertension; F17.200 Nicotine dependence, unspecified, uncomplicated; X58.XXXA Exposure to other specified factors, initial encounter; Y93.89 Activity, other specified; Y92.89 Other specified places as the place of occurrence of the external cause; Y99.8 Other external cause status; K08.109 Complete loss of teeth, unspecified cause, unspecified class
CPT/HCPCS: 99283

== ENCOUNTER 2021-01-13 12:38 | Emergency (ER) | payer MEDICAID ==
[~2021-01-13] VITALS: Ht 160 cm; Wt 70.0 kg
[~2021-01-13 12:38] MED LIST changes: +CHLO15MO2 SWSP; +PENI500T PO
[2021-01-13 13:30] VITALS: BP 105/69
--- NOTE | 2021-01-13 14:51 | PHYS DOC ---
Past Medical History Past Medical History: Hypertension, Schizophrenia Additional Past Medical Histor: [place], hypoglycemic Past Surgical History: Appendectomy Smoking Status: Current Every Day Smoker Alcohol Use: Rarely Drug Use: None General Adult EDM: Chief Complaint: BREAST PAIN/INJURY HPI: HPI: Patient is a 45 year old male who presents with right breast mass for 3 months. Patient states the mass is painful on touching the breast. Denies any drainage. Poor historian. Denies any family history of breast cancer. Review of Systems: Review of Systems: Constitutional: Denies fever or chills. [] Musculoskeletal: Denies back pain or joint pain. [] Integument: Reports right breast mass Neurologic: Denies headache, focal weakness or sensory changes. [] Psychiatric: Denies depression or anxiety. [] Heart Score: C/O Chest Pain: N/A Risk Factors: Risk Factors: DM, Current or recent (<one month) smoker, HTN, HLP, family history of CAD, obesity. Risk Scores: Score 0 - 3: 2.5% MACE over next 6 weeks - Discharge Home Score 4 - 6: 20.3% MACE over next 6 weeks - Admit for Clinical Observation Score 7 - 10: 72.7% MACE over next 6 weeks - Early Invasive Strategies Allergies: Allergies: Allergies Coded Allergies Type Severity Reaction Last Updated Verified No Known Drug Allergies 11/28/17 No Physical Exam: PE: Constitutional: Well developed, well nourished, no acute distress, non-toxic appearance. [] Skin: Right breast with a palpable mass mass around 1100 position and slightly above the nipple, no nipple drainage, no nipple dimpling, no tenderness on the right breast during exam. No nipple drainage. No palpable lymph nodes on the right axilla. No signs of infection to the breast. Back: No tenderness, no CVA tenderness. [] Extremities: No tenderness, no cyanosis, no clubbing, ROM intact, no edema. [] Neurologic: Alert and oriented X 3, normal motor function, normal sensory function, no focal deficits noted. [] Psychologic: Flat affect, paranoid EKG: EKG: [] Radiology/Procedures: Radiology/Procedures: [] Course & Med Decision Making: Course & Med Decision Making Pertinent Labs and Imaging studies reviewed. (See chart for details) This is a 45-year-old male patient presenting to the ED today with right breast mass for 3 months. Patient needs a mammogram as an outpatient. Instructed to contact the PCP and set up an appointment and they will set him up for mammogram Adonis Disclaimer: Adonis Disclaimer: This electronic medical record was generated, in whole or in part, using a voice recognition dictation system. Departure Departure Impression: Primary Impression: Breast mass, right Disposition: HOME / SELF CARE / HOMELESS Condition: STABLE Referrals: NO PCP (PCP) Please follow-up with [facility] and they will set you up for an outpatient mammogram/ultrasound of your breast Patient Instructions: Breast Cyst Additional Instructions: You have a mass to the right breast that needs to be followed up with your primary care doctor for an outpatient mammogram and ultrasound. EDEN FLYNN C ENGINEER January 13, 2021 14:51
== END 2021-01-13 15:00 | disposition home or self-care (01) ==
LOC: ER 12:38
DX: N63.10 Unspecified lump in the right breast, unspecified quadrant (principal); F20.9 Schizophrenia, unspecified; I10 Essential (primary) hypertension; F17.200 Nicotine dependence, unspecified, uncomplicated
CPT/HCPCS: 99281

== ENCOUNTER 2021-02-27 16:46 | Emergency (ER) | payer MEDICAID ==
[~2021-02-27] VITALS: Ht 162.6 cm; Wt 77.0 kg
[2021-02-27] MEDS ORDERED: IV NORMAL SALINE 1000ML BAG 1,000 ML IV ONE ×3 (17:00→18:15)
--- NOTE | 2021-02-27 17:02 | PHYS DOC ---
Past Medical History Past Medical History: Schizophrenia Additional Past Medical Histor: [place], hypoglycemic Past Surgical History: No Surgical History Smoking Status: Current Every Day Smoker Alcohol Use: None Drug Use: None General Adult EDM: Chief Complaint: HYPOTENSION HPI: HPI: 45-year-old male who was donating plasma and red blood cells when he started feeling lightheaded. It started just after they began an IV in the patient. He had severe pain at the IV site suddenly had severe nausea and felt lightheaded. Paramedics were called who arrived and noticed the patient was hypotensive so they began an IV and gave the patient IV fluids. In route the patient received 500 cc of IV fluids which improved his symptoms. His blood pressure was improving in route. On arrival the patient is feeling better and denies any pain. Onset today. Location generalized. Duration constant. Alleviated by IV fluids. Review of systems negative for chest pain shortness of breath abdominal pain vomiting diaphoresis fevers chills rashes. All other review of system negative. Heart Score: C/O Chest Pain: No Risk Factors: Risk Factors: DM, Current or recent (<one month) smoker, HTN, HLP, family history of CAD, obesity. Risk Scores: Score 0 - 3: 2.5% MACE over next 6 weeks - Discharge Home Score 4 - 6: 20.3% MACE over next 6 weeks - Admit for Clinical Observation Score 7 - 10: 72.7% MACE over next 6 weeks - Early Invasive Strategies Current Medications: Current Medications Medications (Trade) Dose Ordered Sig/[facility] Start Time Stop Time Status Last Admin Dose Admin Sodium Chloride 1,000 ml @ 1,000 mls/hr 1X ONCE 02/27/21 17:00 02/27/21 17:59 Allergies: Allergies: Allergies Coded Allergies Type Severity Reaction Last Updated Verified No Known Drug Allergies 11/28/17 No Physical Exam: PE: Constitutional: Well developed, well nourished, no acute distress, non-toxic appearance. [] HENT: Normocephalic, atraumatic, bilateral external ears normal, oropharynx moist, no oral exudates, nose normal. [] Eyes: PERRLA, EOMI, conjunctiva normal, no discharge. [] Neck: Normal range of motion, no tenderness, supple, no stridor. [] Cardiovascular:Heart rate regular rhythm, no murmur [] Lungs & Thorax: Bilateral breath sounds clear to auscultation [] Abdomen: Bowel sounds normal, soft, no tenderness, no masses, no pulsatile masses. [] Skin: Warm, dry, no erythema, no rash. [] Back: No tenderness, no CVA tenderness. [] Extremities: No tenderness, no cyanosis, no clubbing, ROM intact, no edema. [] Neurologic: Mental status: Awake oriented and alert x3 Cranial nerves: Extraocular movements intact, eyebrows [place] bilaterally, smile symmetric, uvula elevation nl, shoulder shrug intact bilaterally, tongue protrusion normal Clear speech. Sensation: equal and normal in all extremities Strength: 5/5 in upper and lower extremities bilaterally Psychologic: Affect normal, judgement normal, mood normal. [] Current Patient Data: Vital Signs: Vital Signs Date Time Temp Pulse Resp B/P (MAP) Pulse Ox O2 Delivery O2 Flow Rate FiO2 02/27/21 16:49 97.6 97.6 EKG: EKG: [] Radiology/Procedures: Radiology/Procedures: [] Course & Med Decision Making: Course & Med Decision Making Pertinent Labs and Imaging studies reviewed. (See chart for details) [] 45-year-old gentleman sent here for hypotension after working out in the hot sun and then donating blood at a local blood bank. On arrival patient's blood pressure is in the mid 90s systolic. Patient is awake alert with a normal neurologic exam and without any symptoms. Patient was given IV fluids. We performed a second IV in the left arm which the patient had a vasovagal episode with. 2 L running through 2 IVs. Heart rate is within normal limits. Reevaluation at 5:50 PM he continues to be hypotensive. He has had about 200 to 300 L of IV fluids here in the emergency room plus the 500 cc given by EMS. His labs show nonspecific leukocytosis. Chemistry panel shows a potassium of 5.5. Patient was signed out to oncoming physician at approximately 6 PM with plans to administer the rest of the IV fluids, follow-up on pending tests and reevaluate the patient. EKG pending along with CK at the time of signout. Dragon Disclaimer: Dragon Disclaimer: This electronic medical record was generated, in whole or in part, using a voice recognition dictation system. Departure Departure Impression: Primary Impression: Hypotension Referrals: NO PCP (PCP) TRACY JOSÉ MD Feb 27, 2021 17:02
[2021-02-27 17:22] LABS: BASO # 0.1 x10^3/uL (0.0-0.2); BASO % 1 % (0-3); EOS # 0.2 x10^3/uL (0.0-0.7); EOS % 2 % (0-3); HEMATOCRIT 45.9 % (39.0-53.0); LYMPH # 3.4 x10^3/uL (1.0-4.8); LYMPH % 24 % (24-48); MEAN CORPUSCULAR HEMOGLOBIN 31 pg (25-35); MEAN CORPUSCULAR HGB CONC 35 g/dL (31-37); MEAN CORPUSCULAR VOLUME 89 fL (79-100); MONO # 1.1 x10^3/uL (0.0-1.1); MONO % 8 % (0-9); NEUT # 9.2 x10^3/uL (1.8-7.7); NEUT % 65 % (31-73); PLATELET COUNT 336 x10^3/uL (140-400); RED BLOOD COUNT 5.17 x10^6/uL (4.30-5.70); RED CELL DISTRIBUTION WIDTH 13.5 % (11.5-14.5); WHITE BLOOD COUNT 14.1 x10^3/uL (4.0-11.0)
[2021-02-27 17:38] LABS: CALCIUM 8.4 mg/dL (8.5-10.1); CREATININE 1.3 mg/dL (0.7-1.3); GFR 59.7; POTASSIUM 5.5 mmol/L (3.5-5.1)
[2021-02-27 17:42] LABS: ALBUMIN 3.4 g/dL (3.4-5.0); ALBUMIN/GLOBULIN RATIO 1.2 (1.0-1.7); TOTAL BILIRUBIN 0.3 mg/dL (0.2-1.0); TOTAL PROTEIN 6.3 g/dL (6.4-8.2)
[2021-02-27 19:32] VITALS: BP 116/71
--- NOTE | 2021-02-28 04:57 | EKG ---
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
== END 2021-02-27 20:57 | disposition home or self-care (01) ==
LOC: ER 16:46
DX: I95.9 Hypotension, unspecified (principal); F20.9 Schizophrenia, unspecified; F17.200 Nicotine dependence, unspecified, uncomplicated
CPT/HCPCS: 36415; 80053; 82550; 84132; 84484; 85025; 93005; 96360; 96361; 99285; J7030